=== PATIENT | male | born 1930 | race African-American/Black ===

== ENCOUNTER 2016-09-06 12:59 | Outpatient (CLI) | payer MEDICARE, MEDICAID ==
[2016-09-06 13:29] LABS: INR-International Normal Ratio 2.2; Prothrombin Time 24.7 SEC (12.0-14.7)
== END 2016-09-06 13:00 | disposition home or self-care (01) ==
LOC: MADLAB 12:59
PROVIDERS: ATTEND Family Medicine
DX: Z51.81 Encounter for therapeutic drug level monitoring (principal); Z79.01 Long term (current) use of anticoagulants
CPT/HCPCS: 36415; 85610

== ENCOUNTER 2016-09-10 07:51 | Emergency (ER) | payer MEDICARE, MEDICAID ==
[~2016-09-10 07:51] MED LIST: Sodium Chloride 0.9% 100 ML BAG ONE; Succinylcholine Chloride 200 MG/10 ML VIAL ONE
[2016-09-10 08:26] LABS: Anion Gap 16 mmol/L (10-20); BUN (Urea Nitrogen) 15 mg/dL (8.4-25.7); Calc. Creatinine Clearance 0 mL/min (70-130); Calcium 8.6 mg/dL (7.8-10.44); Carbon Dioxide 23 mmol/L (23-31); Chloride 106 mmol/L (98-107); Estimated GFR-MDRD 78; Glucose 183 mg/dL (83-110); Potassium 3.4 mmol/L (3.5-5.1); Sodium 142 mmol/L (136-145)
[2016-09-10] MEDS ORDERED: cefTRIAXone\\ROCEPHIN 1 GM VIAL ONE (08:27)
[2016-09-10] MEDS ORDERED: Famotidine In NaCl 20 mg/50 ml Premix Bag ONE (08:27)
[2016-09-10] MEDS ORDERED: Famotidine 20 MG TAB ONE (08:27)
[2016-09-10] MEDS ORDERED: Ondansetron HCl/PF 4 MG/2 ML Vial ONE (08:27)
[2016-09-10 08:30] LABS: CKMB 1.1 ng/mL (0-6.6); Troponin I Less than 0.010 ng/mL (< 0.028)
[2016-09-10 08:34] LABS: Bilirubin Negative (Negative); Blood, Urine Moderate (Negative); Clarity Clear (Clear); Glucose, Urine (Dipstick) Negative (Negative); Leukocyte Negative (Negative); Nitrite Negative (Negative); Protein, Urine (Dipstick) Trace mg/dL (Neg-Trace); Specific Gravity, Urine 1.015 (1.005-1.030); Urobilinogen 0.2 mg/dL (0.2-1.0); pH, Urine 5.5 (5.0-9.0)
[2016-09-10 08:35] LABS: Bacteria/HPF Rare-Few HPF (None Seen); Squamous Epithelial 0-3 HPF (0-3); WBC/HPF 0-3 HPF (0-3)
[2016-09-10 08:44] LABS: Hemoglobin 9.6 g/dL (14.0-18.0); MDiff Complete? YES; Manual Diff?? YES; Mean Corpuscular HGB CONC 32.5 g/dL (32.0-36.0); Mean Corpuscular Hemoglobin 27.6 pg (27.0-31.0); Mean Corpuscular Volume 84.8 fL (80.0-94.0); Mean Platelet Volume 9.2 fL (7.4-10.4); Platelet Count 63 thou/uL (130-400); RBC Distribution Width 13.5 % (11.5-14.5); Red Blood Cell (RBC) Count 3.49 mill/uL (4.70-6.10); White Blood Cell (WBC) Count 8.7 thou/uL (4.8-10.8)
[2016-09-10 08:45] LABS: Anisocytosis SLIGHT = 6-15 cells (100X) (0-5/hpf); Band 3 % (5-11); Lymphocytes 60 % (21-51); Monocytes 2 % (0-10); Neutrophil 34 % (42-75); PLT Morphology Comment Appears Decreased
[2016-09-10 08:46] LABS: Amphetamine Not Detected (NotDetected); Barbiturates Screen Not Detected (NotDetected); Benzodiazepine Screen Not Detected (NotDetected); Cocaine Metabolite Screen Not Detected (NotDetected); Medtox Control Line Valid? VALID (VALID); Methadone Not Detected (NotDetected); Methamphetamine Not Detected (NotDetected); Opiate Screen Not Detected (NotDetected); Oxycodone Screen Not Detected (NotDetected); Phencyclidine (PCP) Not Detected (NotDetected); THC/Cannabinoid Screen Not Detected (NotDetected); Tricyclic Screen Not Detected (NotDetected)
--- NOTE | 2016-09-10 08:46 | RAD ---
CHEST 1 VIEW: Date 09/10/16 HISTORY: Altered mental status. COMPARISON: 07/19/16. FINDINGS: The cardiac silhouette is magnified by projection. Pulmonary vasculature is upper limits of normal. Right infrahilar infiltrate has improved since the prior study. Mediastinum is midline. Cardiac alf tor leads overlie the chest. IMPRESSION: Improved aeration of the right lung base. Other chronic-type findings appear stable. POS: [facility]
[2016-09-10] MEDS ORDERED: Fentanyl 100 MCG/2 ML VIAL ONE (08:59)
[2016-09-10] MEDS ORDERED: Midazolam HCl 10 mg/2 ml Vial ONE (08:59)
--- NOTE | 2016-09-10 09:24 | CT ---
CT HEAD NONCONTRAST: Date: 09/10/16 HISTORY: Altered mental status. COMPARISON: 11/25/13. FINDINGS: Centered within the left frontal lobe is a very large heterogeneous mixed density fluid collection c ontaining hyperdense components. The mass measures up to 8.2 x 6.5 cm greatest diameter and is surro unded by a small amount of vasogenic edema. There is extensive effacement of the adjacent cerebrum a nd ventricular system. There is up to 1.4 cm rightward shift of the septum pellucidum. A small amoun t of hyperdense fluid layers within the dependent portion of the right lateral ventricle. A small fo cus of increased density just to the right of midline at the cerebellar vermis may represent subarac hnoid hemorrhage. IMPRESSION: Very large intra-axial hematoma centered within the left frontal lobe with intraventricular extensio n of hemorrhage and extensive mass effect, including rightward shift of the septum pellucidum. Prima ry considerations would include a hemorrhagic intra-axial mass, ruptured aneurysm, or hemorrhagic co nversion of a CVA. Findings were called to Dr. Zabala in the [facility] a 0824 hours. CODE CR. POS: [facility]
[2016-09-10 09:45] LABS: INR-International Normal Ratio 2.2; PTT 33.7 SEC (22.9-36.1); Prothrombin Time 24.6 SEC (12.0-14.7)
--- NOTE | 2016-09-10 10:03 | RAD ---
CHEST 1 VIEW: HISTORY: Tube placement. Unresponsive. COMPARISON: Chest 1 view 09/10/16. FINDINGS: The patient is intubated with the endotracheal tube tip positioned just below the level of the clavi cles. There are mild atelectatic changes in the lung roldan. No pneumothorax or large effusion. Car diac silhouette and mediastinal contours are within normal limits. IMPRESSION: 1. Endotracheal tube tip in good position below the level of the clavicles. 2. Suggestion of a new enteric tube, although poorly visualized on this examination. The tip is no t well seen. Consider an abdomen radiograph. POS: OFF
--- NOTE | 2016-09-10 10:07 | ERRECORD ---
[facility] EMERGENCY RECORD HPI MENTAL STATUS CHANGES CHIEF COMPLAINT: Patient presents for evaluation of lethargy, Patient presents for evaluation of unresponsiveness. (08:05 RWAG) HISTORIAN: History provided by patient's family, Additional history obtained from EMS, family called EMS "pt difficult to arouse from sleep this am". (08:05 RWAG) LOCATION: Symptoms are generalized. (08:05 RWAG) QUALITY: Patient is, responsive to painful stimuli. (08:05 RWAG) SEVERITY: Maximum severity of symptoms moderate, Currently symptoms are moderate. (08:05 RWAG) TIME COURSE: Patient unable to describe onset of symptoms. (08:05 RWAG) ASSOCIATED WITH: No associated hyperglycemia, No associated hypoglycemia. (08:05 RWAG) EXACERBATED BY: Patient's condition exacerbated by nothing. (08:05 RWAG) RELIEVED BY: Nothing tried for relief. (08:05 RWAG) CRITICAL CARE: Time spent providing critical care to the patient was 75-104 minutes, 90 minutes, RSI performed. see procedure note. (09:12 RWAG) ROS (08:06 RWAG) CONSTITUTIONAL: Historian reports lethargy. EYES: Negative eye review of systems. ENT: Negative ears, nose, throat review of systems. CARDIOVASCULAR: Negative cardiovascular review of systems. RESPIRATORY: Historian reports cough, reports sputum. described as thick. GI: Negative gastrointestinal review of systems. GENITOURINARY MALE: Negative genitourinary review of systems. MUSCULOSKELETAL: Negative musculoskeletal review of systems. SKIN: Negative skin review of systems. NEUROLOGIC: Historian reports lethargy, reports mental status changes. ENDOCRINE: Negative endocrine review of systems. HEMO/LYMPHATIC: Normal hematologic/lymphatic system review. ALLERGIC/IMMUNOLOGIC: Normal allergy/immunologic system review. NOTES: All systems reviewed, negative except as described above. PAST MEDICAL HISTORY (09:04 SFRE) MEDICAL HISTORY: Notes: VERIFIED PER DAUGHTER 16, Notes: In Addition - after speaking with daughters - PT HAS HX OF LEUKOCYTOSIS - SEEN IN [place] FOR THIS WITH ONCOLOGIST LAST SUMMER - NO CA FOUND PER DAUGHTERS, Flu vaccine up to date, Date of immunization: JUL 2013, Tetanus immunization up to date, Date of immunization: NOT SURE, Pneumococcal vaccine up to date, Date of immunization: 2012, Past medical history includes genitourinary history, ENLARGED PROSTATE, Past medical history includes history of hypertension, which has been treated. 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 MALE SURGICAL HISTORY: VERIFIED PER DAUGHTER 6-12-16, &a-1R&a+25V*p+0X*[id number]*c202B*c15G*c2P*p-0X&a-25V&a+1R Name: Chris Robles : 1930 M85 MedRec: [id number] AcctNum: [id number] Prepared: TueSep 10, 2016 10:05 by Interface Page 1 of 4 pMD [facility] EMERGENCY RECORD Patient has no surgical history. PSYCHIATRIC HISTORY: Notes: DENIES, No previous psychiatric history. SOCIAL HISTORY: Social History includes VERIFIED PER DAUGHTER 616, Patient is a former tobacco user, smoked cigarettes, Patient quit smoking more than 10 years ago, Tobacco history notes: QUIT AT AGE 78, Patient denies alcohol use, Patient denies drug use. KNOWN ALLERGIES No Known Drug Allergies CURRENT MEDICATIONS (09:22 AWAT) meTOPROLOL tartrate: TABLET : Strength - 25 mg : ORAL Patient Dose: 50 mg Oral 2 times a day. NIFEdipine: TABLET, EXTENDED RELEASE : Strength - 60 mg : ORAL Patient Dose: 60 mg Oral once a day. warfarin: TABLET : Strength - 7.5 mg : ORAL Patient Dose: 7 mg Oral once a day. terazosin: TABLET : Strength - 2 mg : ORAL Patient Dose: 1 cap(s) Oral once a day (in the evening). finasteride: TABLET : Strength - 5 mg : ORAL Patient Dose: 1 null null once a day. hydrochlorothiazide: TABLET : Strength - 25 mg : ORAL Patient Dose: once a day. [facility]07:56 [facility] VITAL SIGNS: BP: 166/101, Pulse: 88, Resp: 26, Temp: 95.5 (Rectal), Pain: 0, O2 sat: 88, Time: 09/10/2016 07:56. PHYSICAL EXAM (08:08 [facility]) CONSTITUTIONAL: Vital Signs Reviewed. HEAD: Head exam normal. EYES: Eye exam included findings of eyelids normal to inspection, Right pupil pinpoint,sluggish. Left pupil 3-4mm fixed,?possible old injury or cataract on left side. ENT: ENT exam normal. NECK: Neck exam normal. RESPIRATORY CHEST: Respiratory exam included findings of no respiratory distress, no egophony, Rales present, Chest exam included findings of chest movement symmetrical, Chest expansion equal, Percussion normal, thick mucus suctioned from oropharynx. CARDIOVASCULAR: Cardiovascular exam included findings of, rate bradycardic, rhythm regular. &a-1R&a+25V*p+0X*[id number]*c202B*c15G*c2P*p-0X&a-25V&a+1R Name: Chris Robles : 1930 M85 MedRec: [id number] AcctNum: [id number] Prepared: TueSep 10, 2016 10:05 by Interface Page 2 of 4 pMD [facility] EMERGENCY RECORD ABDOMEN MALE: Abdominal exam normal. GENITOURINARY MALE: External genitalia normal. BACK: Back exam normal. UPPER EXTREMITY: Upper extremity exam normal. LOWER EXTREMITY: Lower extremity exam normal. NEURO: Neuro exam findings include patient oriented to, [place] coma scale, Eye opening: (2) - To pain, Verbal: (2) - Incomprehensible sounds, Motor: (4) - Withdraws to Pain, GCS Total: 8. LYMPHATIC: Lymphatic exam normal. EKG INTERPRETATION (08:03 RW) 12 LEAD EKG INTERPRETATION: 12 lead EKG interpreted by Emergency Department Physician at time of study, 12 lead EKG shows, sinus bradycardia, Rate (beats per minute): 47, with no ectopics, No previous EKG available for comparison, Conduction normal, ST segments normal, T waves normal, [place] normal, Clinical impression:, non-specific EKG. MEDICATION ADMINISTRATION SUMMARY Drug Name: rocuronium, Dose Ordered: 10 mg, Route: IV Push, Status: Canceled, Time: 09:23 09/10/2016, Drug Name: *DuoNeb, Dose Ordered: 3 mL, Route: Nebulize, Status: Canceled, Time: 09:06 09/10/2016, Drug Name: *Versed injection, Dose Ordered: 10 mg, Route: IV Piggy Back, Status: Given, Time: 09:48 09/10/2016, Drug Name: Amidate, Dose Ordered: 20 mg, Route: IV Push, Status: Given, Time: 09:22 09/10/2016, Drug Name: famotidine (PF), Dose Ordered: 20 mg, Route: IV Push, Status: Given, Time: 09:08 09/10/2016, Drug Name: ondansetron HCl intravenous, Dose Ordered: 8 mg, Route: IV Push, Status: Given, Time: 09:07 09/10/2016, Drug Name: cefTRIAXone injection, Dose Ordered: 1 g, Route: IV Piggy Back, Status: Given, Time: 09:06 09/10/2016, Drug Name: fentaNYL (PF) injection, Dose Ordered: 50 mcg, Route: IV Push, Status: Given, Time: 09:04 09/10/2016, Drug Name: succinylcholine chloride intravenous, Dose Ordered: 200 mg, Route: IV Push, Status: Given, Time: 08:51 09/10/2016, *Additional information available in notes, Detailed record available in Medication Service section. DOCTOR NOTES (:07 ) TEXT: PROCEDURE NOTE:RSI Pt pre-oxygenated with 100% O2, Sat 100%. Induction medications given. Orotracheal intubation achieved on first attempt with no complications. 7.5 ETT placed 21cm at lip. ETT secured with tube tamer. ETCO2 yellow. Breath sounds heard equally, and bilaterally. Sat remained 100% throughout. CXR pending. &a-1R&a+25V*p+0X*x6317R*c202B*c15G*c2P*p-0X&a-25V&a+1R Name: Chris Robles : 1930 M85 MedRec: [id number] AcctNum: [id number] Prepared: TueSep 10, 2016 10:05 by Interface Page 3 of 4 pMD [facility] EMERGENCY RECORD PROBLEM LIST No recorded problems DIAGNOSIS (09:15 RW) FINAL: PRIMARY: Intracerebral hemorrhage (unspecified), ADDITIONAL: OTHER PRIMARY THROMBOCYTOPENIA. PRESCRIPTION No recorded prescriptions DISPOSITION PATIENT: Disposition Type: Transfer, Disposition: Transfer to [facility], Disposition Transport: Ambulance, Condition: Critical. (08:59 RWAG) Patient left the department. (10:00 SFRE) Edward: AWAT=NASRIN Ye, Louis RWAG=MD Vj, Zheng SFRE=NASRIN Diaz, Sindi &a-1R&a+25V*p+0X*[id number]*c202B*c15G*c2P*p-0X&a-25V&a+1R Name: Chris Robles : 1930 M85 MedRec: [id number] AcctNum: [id number] Prepared: TueSep 10, 2016 10:05 by Interface Page 4 of 4 pMD [facility]TDD
--- NOTE | 2016-09-10 10:09 | PICIS ---
[facility] EMERGENCY RECORD COMMUNICATIONS (08:52 AWAT) COMMUNICATIONS: Notes: TRANSFER PROCESS INITIATED NOW TO [facility]. DR ZABALA AT BEDSIDE INTUBATING. TRIAGE (07:59 MCRS) TRIAGE NOTES: TO ER BY EMS DUE TO UNRESPONSIVENESS... PT LIVES AT HOME W FAMILY, DOES HAVE SLIGHT WITHDRAWEL TO PAIN-NEEDLE STICKS. BRADYCARDIC IN 40'S-50'S. NO KNOWN INJURY. LAST SEEN NORMAL LAST NIGHT WHEN HE WENT TO BED.. (07:59 MCRS) PATIENT: NAME: Chris Robles, AGE: 85, GENDER: male, : Sat 1930, TIME OF GREET: TueSep 10, 2016 07:52, PREFERRED LANGUAGE: Georgian, ETHNICITY: Not or , FALL RISK: YES, ECODE BILLING MAP: [facility] ER, SSN: [id number], Zip Code: [address], KG WEIGHT: 79.38 (est.), PHONE: , , , PERSON ID: [id number]. (07:59 MCRS) COMPLAINT: EMS. (07:59 MCRS) ADMISSION: URGENCY: 3 Urgent, ADMISSION SOURCE: Home, TRANSPORT: AMBULANCE - [facility] EMS, BED: ED -02. (07:59 MCRS) ASSESSMENT: Assessment: PT UNRESPONSIVE, Symptoms began UNKNOWN, Additional Triage notes: LAST SEEN NORMAL AT 2330 09/09/2016. (09:40 SFRE) PAIN: No complaint of pain. (09:41 SFRE) SIRS SCORING: Heart Rate 55-109 (0), Temp range 93.1-96.7 (1), respiratory rate 25-34 (1), Mental status altered: yes (1), Total SIRS Score 3, Yes, Infection or Suspected Infection. (09:41 SFRE) SIRS NOTIFICATION: Yes, Infection or Suspected Infection. (09:42 SFRE) TRIAGE SCREENING: Patient denies suicidal ideation, Patient denies presence of domestic violence. (09:42 SFRE) PROVIDERS: TRIAGE NURSE: Andrew Coats RN. (07:59 MCRS) PREVIOUS VISIT ALLERGIES: No Known Drug Allergies. (07:59 MCRS) No Known Drug Allergies. (09:04 SFRE) KNOWN ALLERGIES No Known Drug Allergies CURRENT MEDICATIONS (09:22 AWAT) meTOPROLOL tartrate: TABLET : Strength - 25 mg : ORAL Patient Dose: 50 mg Oral 2 times a day. NIFEdipine: TABLET, EXTENDED RELEASE : Strength - 60 mg : ORAL Patient Dose: 60 mg Oral once a day. warfarin: TABLET : Strength - 7.5 mg : ORAL Patient Dose: 7 mg Oral once a day. terazosin: TABLET : Strength - 2 mg : ORAL &a-1R&a+25V*p+0X*r3815F*c202B*c15G*c2P*p-0X&a-25V&a+1R Name: Chris Robles : 1930 M85 MedRec: [id number] AcctNum: [id number] Prepared: TueSep 10, 2016 10:07 by Interface Page 1 of 17 pMD [facility] EMERGENCY RECORD Patient Dose: 1 cap(s) Oral once a day (in the evening). finasteride: TABLET : Strength - 5 mg : ORAL Patient Dose: 1 null null once a day. hydrochlorothiazide: TABLET : Strength - 25 mg : ORAL Patient Dose: once a day. VITAL SIGNS (07:56 SFRE) VITAL SIGNS: BP: 166/101, Pulse: 88, Resp: 26, Temp: 95.5 (Rectal), Pain: 0, O2 sat: 88, Time: 09/10/2016 07:56. NURSING ASSESSMENT: DYSPHAGIA SCREENING (09:32 SFRE) SWALLOWING EVALUATION: Swallowing evaluation approved by Dr. ZABALA, Notes: ORDERS FOR NPO. NURSING ASSESSMENT: NEURO GCS: (4) Withdraws to pain:, (1) None., (1) No eye opening:, Result: 6. (08:19 SFRE) (4) Withdraws to pain:, (1) None., (1) No eye opening:, Result: 6. (09:23 SFRE) NIHSS: CVA assessment findings: Level of consciousness: responds only with reflex motor effects, totally unresponsive (3), Total score 3. (08:19 SFRE) CVA assessment findings: Level of consciousness: responds only with reflex motor effects, totally unresponsive (3), Total score 3. (09:23 SFRE) CONSTITUTIONAL: Patient arrives, via stretcher, via [facility], History obtained from, [facility], Patient appears, unconscious, Patient, unresponsive, Patient, unresponsive, Patient is, UNRESPONSIVE, Skin warm, Skin dry, Skin normal in color, Mucous membranes pink, Mucous membranes, tacky, Patient, with poor personal hygiene, Patient complains of UNRESPONSIVE, FAMILY FOUND THIS AM, UNKNOWN HOW LONG HE HAS BEEN UNRESPONSIVE. (08:19 SFRE) Patient arrives, via stretcher, via [facility], Patient, unresponsive. (09:23 SFRE) NEURO: Pupils not equally round and reactive to light, fixed, pinpoint, fixed, dilated, GCS:, Eye opening: (1) - Absent, Verbal: (1) - Absent, Motor: (4) - Withdraws to Pain, GCS Total: 6, no associated fever, Notes: FAMILY FOUND PT LIKE THIS THIS MORNING WHEN THEY WENT TO WAKE HIM UP. LAST TIME SEEN NORMAL WAS AROUND 23:30 09/09/2016. (08:19 SFRE) SAFETY: Side rails up, Cart/Stretcher in lowest position, Call light within reach, Hospital ID band on. (08:19 SFRE) ADVANCED DIRECTIVES (09:38 SFRE) &a-1R&a+25V*p+0X*k9046O*c202B*c15G*c2P*p-0X&a-25V&a+1R Name: Chris Robles : 1930 M85 MedRec: [id number] AcctNum: [id number] Prepared: TueSep 10, 2016 10:07 by Interface Page 2 of 17 pMD [facility] EMERGENCY RECORD ADVANCED DIRECTIVE: No advanced Directives present for patient. Perform all reasonable measures, SISTER STATES SHE WANTS HIM TO BE RESUCITATED IF NEEDED. NURSING PROCEDURE: SENIOR TEST ENGINEER (08:17 SFRE) SENIOR TEST ENGINEER: Cardiac monitoring indicated for UNRESPONSVIE, Patient placed on campus monitor, Patient placed on non-invasive blood pressure monitor, Patient placed on continuous pulse oximetry, Adult/pediatric oxisensor applied. NURSING PROCEDURE: GASTRIC TUBE (09:12 AWAT) PATIENT IDENTIFIER: Patient's identity verified by hospital ID horacio, Patient's identity verified by family member. GASTRIC TUBE: Gastric tube indicated for airway maintenance, 16fr gastric tube inserted, into the left nare, in one attempt, Placement verified by auscultation, Placement verified by stomach contents in tube, Placement verified by x-ray, Gastric tube clamped. SAFETY: Side rails up, Cart/Stretcher in lowest position, Call light within reach, Hospital ID band on, Physician notified of above findings. NURSING PROCEDURE: INTUBATION (08:52 AWAT) PATIENT IDENTIFIER: Patient's identity verified by hospital ID horacio, Patient's identity verified by family member. INTUBATION: Intubation indicated for patient unable to maintain airway, Prior to intubation oxygen saturation 93%, by adult/pediatric oxisensor, on 4L, via nasal cannula applied, Prior to intubation breath sounds clear, to bilateral upper lobes, to the right middle lobe, to bilateral lower lobes, Patient intubated orally, Intubated by Dr. ZABALA, using a 7.5 mm endotracheal tube, in one attempts, Number at the lip (cm) 21, Yankauer suction at head of bed, Ventilated with Ambu bag post intubation, Endotracheal tube secured, with tube kaur, Breath sounds heard bilaterally, no gurgling over abdomen, Chest x-ray ordered to confirm placement, Chest x-ray completed and placement confirmed, Notes: CO2 DETECTOR WITH + COLOR CHANGE. FOLLOW-UP: Post intubation oxygen saturation 100%, After intubation, breath sounds positive for being clear, to bilateral upper lobes, to the right middle lobe, to bilateral lower lobes, After intubation, patient placed on ventilator with settings: FIO2 100, Tidal Volume: 600, Respiratory rate: 12, Mode: AUTOVENT. NOTES: Emotional support needed and given, Patient tolerated procedure well. SAFETY: Side rails up, Cart/Stretcher in lowest position, Call light within reach, Hospital ID band on, Physician notified of above findings. NURSING PROCEDURE: IV IV SITE 1: Notes: by ems dining room captain, 20 to left hand. (08:17 SFRE) &a-1R&a+25V*p+0X*g0941B*c202B*c15G*c2P*p-0X&a-25V&a+1R Name: Chris Robles : 1930 M85 MedRec: [id number] AcctNum: [id number] Prepared: TueSep 10, 2016 10:07 by Interface Page 3 of 17 pMD [facility] EMERGENCY RECORD IV SITE 2: IV therapy indicated for medication administration, IV established, to the right forearm, using an 18 gauge catheter, in one attempt, Saline lock established, Flushed with normal saline (mls): 5cc, Labs drawn at time of placement, labeled in the presence of the patient and sent to lab. (08:16 SFRE) FOLLOW-UP SITE 1: After procedure, no drainage at IV site, After procedure, no swelling at IV site, After procedure, no redness at IV site. (09:00 SFRE) FOLLOW-UP SITE 2: After procedure, no drainage at IV site, After procedure, no swelling at IV site, After procedure, no redness at IV site. (09:35 SFRE) NURSING PROCEDURE: NURSE NOTES NURSES NOTES: Notes: NG TUBE AT THIS TIME PER YANIQUE. (09:12 SFRE) Notes: TRIAGE DONE BY JHONNY ALEXANDRA-ACCIDENTAL ENTRY UNDER ANOTHER LOGIN. (07:59 AWAT) Warm blanket given to patient. (08:05 SFRE) NURSING PROCEDURE: OXYGEN THERAPY (09:33 SFRE) OXYGEN THERAPY: Oxygen therapy indicated for UNRESPONSIVE, Oxygen saturation 97%, by adult/pediatric oxisensor, multiple pulse oximetry reading, 4L oxygen given, via nasal cannula applied, Applied by EMS ORTHODONTIC ASSISTANT, via nasal cannula. FOLLOW-UP: After procedure, oxygen saturation 100%, After procedure, breath sounds diminished, Notes: INTUBATED AND ON VENTILATOR. SAFETY: Side rails up, Cart/Stretcher in lowest position, Family at bedside, Call light within reach, Hospital ID band on. NURSING PROCEDURE: TRANSFER (09:24 SFRE) TRANSFER: Reason for transfer need for specialized care, Accepting institution: [facility], Referring physician: ELINOR, Transported by urgent ambulance, accompanied by emergency medical services personnel, Report called to receiving facility, NASRIN LONG, Provided opportunity to answer questions, Bed assigned ON ARRIVAL TO ED, Summary of Care printed, Copy of patient record prepared for receiving facility, Patient consent for transfer signed, Patient given appropriate sedation for safe transport, Family member contacted, BS. EQUIPMENT WITH PATIENT: Equipment with patient at time of transfer campus monitor, Equipment with patient at time of transfer carbon dioxide monitor, Saline lock intact and patent at time of transfer, Equipment with patient at time of transfer VENTILATOR 600/TV, 12 RESP, Notes: VERSED DRIP. NURSING PROCEDURE: TRANSPORT TO TESTS (08:14 SFRE) TRANSPORT TO TESTS: Transport indicated to facilitate diagnosis, Patient transported to CT scan, via cart, Accompanied by x-ray robotic technician, Accompanied by nurse, Transported with advanced life &a-1R&a+25V*p+0X*g3002H*c202B*c15G*c2P*p-0X&a-25V&a+1R Name: Chris Robles : 1930 M85 MedRec: [id number] AcctNum: [id number] Prepared: TueSep 10, 2016 10:07 by Interface Page 4 of 17 pMD [facility] EMERGENCY RECORD support care, Notes: transported with campus monitor. NURSING PROCEDURE: URINE COLLECTION (08:00 SFRE) URINE COLLECTION MALE: Simple huerta inserted, using a 16 fr pre-connected catheter, in one attempt, urine rolando in color, and cloudy, Huerta has been anchored to leg and labeled with date and time, Specimen labeled in the presence of the patient and sent to lab, Specimen obtained for culture labeled in the presence of the patient and sent to lab, Notes: HUERTA BY NASRIN VÁZQUEZ. NURSING PROCEDURE: VENTILATOR (09:30 SFRE) FOLLOW UP: After procedure, oxygen saturation 99%, ETT secured with tube kaur, After procedure, breath sounds diminished. ORDER DETAILS Order Name: Accucheck, Status: Done, Time: 08:13 09/10/2016, User: MARY, - Ordered for: MD Zabala Richard, - Entered by: MD Zabala Richard - TueSep 10, 2016 08:01, - Quantity: 1, Order Name: Ammonia, Status: Active, Time: 08:01 09/10/2016, User: KYLE, - Ordered for: MD Zabala Richard, - Entered by: MD Zabala Richard - TueSep 10, 2016 08:01, - Quantity: 1, Order Name: Basic Metabolic Panel, Status: Active, Time: 08:01 09/10/2016, User: KYLE, - Ordered for: MD Zabala Richard, - Entered by: MD Zabala Richard - TueSep 10, 2016 08:01, - Quantity: 1, Order Name: Cardiac Profile w/CKMB & Troponin - I, Status: Active, Time: 08:01 09/10/2016, User: KYLE, - Ordered for: MD Zabala Richard, - Entered by: MD Zabala Richard - TueSep 10, 2016 08:01, - Quantity: 1, Order Name: CATH STRAIGHT ED, Status: Done, Time: 08:13 09/10/2016, User: MARY, - Ordered for: MD Zabala Richard, - Entered by: MD Zabala Richard - TueSep 10, 2016 08:01, - Quantity: 1, Order Name: CBC with Differential, Status: Active, Time: 08:01 09/10/2016, User: KYLE, - Ordered for: MD Zabala Richard, - Entered by: MD Zabala Richard - TueSep 10, 2016 08:01, - Quantity: 1, Order Name: CT Brain WO Con, Status: Active, Time: 08:01 09/10/2016, User: KYLE, &a-1R&a+25V*p+0X*d8350U*c202B*c15G*c2P*p-0X&a-25V&a+1R Name: Chris Robles : 1930 M85 MedRec: [id number] AcctNum: [id number] Prepared: TueSep 10, 2016 10:07 by Interface Page 5 of 17 pMD [facility] EMERGENCY RECORD - Ordered for: MD Zabala Richard, - Entered by: MD Zabala Richard - TueSep 10, 2016 08:01, - Quantity: 1, Order Name: Culture, Blood, Status: Active, Time: 08:12 09/10/2016, User: KYLE, - Ordered for: MD Zabala Richard, - Entered by: MD Zabala Richard - TueSep 10, 2016 08:12, - Quantity: 1, Order Name: Culture, Urine, Status: Active, Time: 08:12 09/10/2016, User: KYLE, - Ordered for: MD Zabala Richard, - Entered by: MD Zabala Richard - TueSep 10, 2016 08:12, - Quantity: 1, Order Name: Drug Screen, Urine, Status: Active, Time: 08:01 09/10/2016, User: KYLE, - Ordered for: MD Zabala Richard, - Entered by: MD Zabala Richard - TueSep 10, 2016 08:01, - Quantity: 1, Order Name: EKG 12 Lead in Emergency Room, Status: Active, Time: 08:01 09/10/2016, User: KYLE, - Ordered for: MD Zabala Richard, - Entered by: MD Zabala Richard - TueSep 10, 2016 08:01, - Quantity: 1, Order Name: ERRT Pulse Oximeter ER, Status: Active, Time: 08:01 09/10/2016, User: KYLE, - Ordered for: MD Zabala Richard, - Entered by: MD Zabala Richard - TueSep 10, 2016 08:01, - Quantity: 1, Order Name: Lactic Acid with repeat, Status: Active, Time: 08:12 09/10/2016, User: KYLE, - Ordered for: MD Zabala Richard, - Entered by: MD Zabala Richard - TueSep 10, 2016 08:12, - Quantity: 1, Order Name: NPO IN ED, Status: Done, Time: 08:13 09/10/2016, User: MARY, - Ordered for: MD Zabala Richard, - Entered by: MD Zabala Richard - TueSep 10, 2016 08:01, - Quantity: 1, Order Name: Protime with INR, Status: Active, Time: 09:11 09/10/2016, User: KYLE, - Ordered for: MD Zabala Richard, - Entered by: MD Zabala Richard - TueSep 10, 2016 09:11, - Quantity: 1, Order Name: PTT, Status: Active, Time: 09:11 09/10/2016, User: KYLE, - Ordered for: MD Zabala Richard, - Entered by: MD Zabala Richard - TueSep 10, 2016 09:11, - Quantity: 1, Order Name: SALINE LOCK, Status: Done, Time: 08:13 09/10/2016, User: MARY, - Ordered for: MD Zabala Richard, &a-1R&a+25V*p+0X*a9694Y*c202B*c15G*c2P*p-0X&a-25V&a+1R Name: hCris Robles : 1930 M85 MedRec: [id number] AcctNum: [id number] Prepared: TueSep 10, 2016 10:07 by Interface Page 6 of 17 pMD [facility] EMERGENCY RECORD - Entered by: MD Zabala Richard - TueSep 10, 2016 08:01, - Quantity: 1, Order Name: Urinalysis w/ Rflx Microscopic, Status: Active, Time: 08:01 09/10/2016, User: KYLE, - Ordered for: MD Zabala Richard, - Entered by: MD Zabala Richard - TueSep 10, 2016 08:01, - Quantity: 1, Order Name: XR Chest 1 View Portable, Status: Active, Time: 08:01 09/10/2016, User: KYLE, - Ordered for: MD Zabala Richard, - Entered by: MD Zabala Richard - TueSep 10, 2016 08:01, - Quantity: 1. MEDICATION ADMINISTRATION SUMMARY Drug Name: rocuronium, Dose Ordered: 10 mg, Route: IV Push, Status: Canceled, Time: 09:23 09/10/2016, Drug Name: *DuoNeb, Dose Ordered: 3 mL, Route: Nebulize, Status: Canceled, Time: 09:06 09/10/2016, Drug Name: *Versed injection, Dose Ordered: 10 mg, Route: IV Piggy Back, Status: Given, Time: 09:48 09/10/2016, Drug Name: Amidate, Dose Ordered: 20 mg, Route: IV Push, Status: Given, Time: 09:22 09/10/2016, Drug Name: famotidine (PF), Dose Ordered: 20 mg, Route: IV Push, Status: Given, Time: 09:08 09/10/2016, Drug Name: ondansetron HCl intravenous, Dose Ordered: 8 mg, Route: IV Push, Status: Given, Time: 09:07 09/10/2016, Drug Name: cefTRIAXone injection, Dose Ordered: 1 g, Route: IV Piggy Back, Status: Given, Time: 09:06 09/10/2016, Drug Name: fentaNYL (PF) injection, Dose Ordered: 50 mcg, Route: IV Push, Status: Given, Time: 09:04 09/10/2016, Drug Name: succinylcholine chloride intravenous, Dose Ordered: 200 mg, Route: IV Push, Status: Given, Time: 08:51 09/10/2016, *Additional information available in notes, Detailed record available in Medication Service section. MEDICATION SERVICE Amidate: Order: Amidate (etomidate) - Dose: 20 mg : IV Push Schedule: Now Ordered by: Zheng Zabala MD Entered by: Zheng Zabala MD TueSep 10, 2016 09:18 Documented as given by: Sindi Diaz RN TueSep 10, 2016 09:22 Patient, Medication, Dose, Route and Time verified prior to administration. Amount given: 20MG, IV SITE #1 IVP, subsequent different medication, Slowly, Catheter placement confirmed via flush prior to administration, IV site without signs or symptoms of infiltration during medication administration, No swelling during administration, No drainage during administration, IV flushed after administration, &a-1R&a+25V*p+0X*f8692E*c202B*c15G*c2P*p-0X&a-25V&a+1R Name: Chris Robles : 1930 M85 MedRec: [id number] AcctNum: [id number] Prepared: TueSep 10, 2016 10:07 by Interface Page 7 of 17 pMD [facility] EMERGENCY RECORD Correct patient, time, route, dose and medication confirmed prior to administration, Patient advised of actions and side-effects prior to administration, Allergies confirmed and medications reviewed prior to administration, Patient in position of comfort, Side rails up, Cart in lowest position, Family at bedside. cefTRIAXone injection: Order: cefTRIAXone injection (ceftriaxone sodium) - Dose: 1 g : IV Piggy Back Schedule: Now Ordered by: Zheng Zabala MD Entered by: Zheng Zabala MD TueSep 10, 2016 08:13 , Acknowledged by: Sindi Diaz RN TueSep 10, 2016 08:14 Documented as given by: Sindi Diaz RN TueSep 10, 2016 09:06 Patient, Medication, Dose, Route and Time verified prior to administration. Amount given: 1G, IV SITE #1 IVPB or drip, initial infusion, Catheter placement confirmed via flush prior to administration, IV site without signs or symptoms of infiltration during medication administration, No swelling during administration, No drainage during administration, IV flushed after administration, Correct patient, time, route, dose and medication confirmed prior to administration, Patient advised of actions and side-effects prior to administration, Allergies confirmed and medications reviewed prior to administration, Patient in position of comfort, Side rails up, Cart in lowest position, Family at bedside. : Follow Up : Response assessment performed, No signs or symptoms of allergic reaction noted, Site inspection shows, No swelling at administration site, No drainage at administration site, No bleeding at site, No bruising noted at site, _IV SITE #1:_, Medication infusion discontinued, on TueSep 10, 2016 09:40, 35 minutes, ., Total amount infused: 1G, IV Line flushed after administration. (09:22 SFRE) famotidine (PF): Order: famotidine (PF) (famotidine/preservative free) - Dose: 20 mg : IV Push Schedule: Now Ordered by: Zheng Zabala MD Entered by: Zheng Zabala MD TueSep 10, 2016 08:03 , Acknowledged by: Sindi Diaz RN TueSep 10, 2016 08:14. : Follow Up : Order: famotidine (PF) (famotidine/preservative free) - Dose: 20 mg : IV Push Schedule: Now Ordered by: Zheng Zabala MD Entered by: Zheng Zabala MD TueSep 10, 2016 08:03 , Acknowledged by: Sindi Diaz RN TueSep 10, 2016 08:15. (08:03 [facility]) : Follow Up : Response assessment performed, No signs or symptoms of allergic reaction noted, _IV SITE #2:_, Medication infusion discontinued, on TueSep 10, 2016 09:24, 20 minutes, ., Total amount infused: 20MG, IV Line flushed after administration. (09:08 SFRE) famotidine (PF): Order: famotidine (PF) (famotidine/preservative &a-1R&a+25V*p+0X*y3107N*c202B*c15G*c2P*p-0X&a-25V&a+1R Name: Chris Robles : 1930 M85 MedRec: [id number] AcctNum: [id number] Prepared: TueSep 10, 2016 10:07 by Interface Page 8 of 17 pMD [facility] EMERGENCY RECORD free) - Dose: 20 mg : IV Push Schedule: Now Ordered by: Zheng Zabala MD Entered by: Zheng Zabala MD TueSep 10, 2016 08:03 , Acknowledged by: Sindi Diaz RN TueSep 10, 2016 08:15 Documented as given by: Sindi Diaz RN TueSep 10, 2016 09:08 Patient, Medication, Dose, Route and Time verified prior to administration. Amount given: 20MG, IV SITE #1 IVPB or drip, subsequent infusion, Catheter placement confirmed via flush prior to administration, IV site without signs or symptoms of infiltration during medication administration, No swelling during administration, No drainage during administration, IV flushed after administration, Correct patient, time, route, dose and medication confirmed prior to administration, Patient advised of actions and side-effects prior to administration, Allergies confirmed and medications reviewed prior to administration, Patient in position of comfort, Side rails up, Cart in lowest position, Family at bedside. fentaNYL (PF) injection: Order: fentaNYL (PF) injection (fentanyl citrate/preservative free) - Dose: 50 mcg : IV Push Schedule: Now Ordered by: Zheng Zabala MD Entered by: Zheng Zabala MD TueSep 10, 2016 09:02 Documented as given by: Sindi Diaz RN TueSep 10, 2016 09:04 Patient, Medication, Dose, Route and Time verified prior to administration. Amount given: 50MCG, IV SITE #1 IVP, subsequent different medication, Rapidly, Line traced prior to administration, Catheter placement confirmed via flush prior to administration, IV site without signs or symptoms of infiltration during medication administration, No swelling during administration, No drainage during administration, IV flushed after administration, Correct patient, time, route, dose and medication confirmed prior to administration, Allergies confirmed and medications reviewed prior to administration, Patient in position of comfort, Side rails up, Cart in lowest position, Family at bedside. ondansetron HCl intravenous: Order: ondansetron HCl intravenous (ondansetron HCl) - Dose: 8 mg : IV Push Schedule: Now Ordered by: Zheng Zabala MD Entered by: Zheng Zabala MD TueSep 10, 2016 08:03 , Acknowledged by: Sindi Diaz RN TueSep 10, 2016 08:14 Documented as given by: Sindi Diaz RN TueSep 10, 2016 09:07 Patient, Medication, Dose, Route and Time verified prior to administration. Amount given: 8MG, IV SITE #1 IVP, subsequent different medication, Awake and alert- acceptable, Catheter placement confirmed via flush prior to administration, IV site without signs or symptoms of infiltration during medication administration, No swelling during &a-1R&a+25V*p+0X*l2427G*c202B*c15G*c2P*p-0X&a-25V&a+1R Name: Chris Robles : 1930 M85 MedRec: [id number] AcctNum: [id number] Prepared: TueSep 10, 2016 10:07 by Interface Page 9 of 17 pMD [facility] EMERGENCY RECORD administration, No drainage during administration, IV flushed after administration, Correct patient, time, route, dose and medication confirmed prior to administration, Patient advised of actions and side-effects prior to administration, Allergies confirmed and medications reviewed prior to administration, Patient in position of comfort, Side rails up, Cart in lowest position, Family at bedside. succinylcholine chloride intravenous: Order: succinylcholine chloride intravenous (succinylcholine chloride) - Dose: 200 mg : IV Push Schedule: Now Ordered by: Zheng Zabala MD Entered by: Zheng Zabala MD TueSep 10, 2016 09:18 Documented as given by: Sindi Diaz RN TueSep 10, 2016 08:51 Patient, Medication, Dose, Route and Time verified prior to administration. Amount given: 200MG, IV SITE #1 IVP, subsequent different medication, Catheter placement confirmed via flush prior to administration, IV site without signs or symptoms of infiltration during medication administration, No swelling during administration, No drainage during administration, IV flushed after administration, Correct patient, time, route, dose and medication confirmed prior to administration, Patient advised of actions and side-effects prior to administration, Allergies confirmed and medications reviewed prior to administration, Patient in position of comfort, Side rails up, Cart in lowest position. Versed injection: Order: Versed injection (midazolam HCl) - Dose: 10 mg : IV Piggy Back Schedule: Now Notes: VERSED DRIP TO TITRATE SEDATION Ordered by: Zheng Zabala MD Entered by: Sindi Diaz RN TueSep 10, 2016 09:48 Documented as given by: Sindi Diaz RN TueSep 10, 2016 09:48 Patient, Medication, Dose, Route and Time verified prior to administration. Administered by NASRIN PARR, 10MG VERSED IN 100ML OF NS FLUIDS. DRIP HUNG FOR EMS TRANSPORT BUT NOT STARTED. ORDER IS TO TITRATE NEEDED FOR SEDATION., Co-signed by: Louis Ye RN TueSep 10, 2016 09:51. (CANCELED) DuoNeb: Order: DuoNeb (ipratropium bromide/albuterol sulfate) - Dose: 3 mL : Nebulize Schedule: Now Notes: (0.5mg Ipratropium Mcrae/3mg Albuterol Sulfate = 3ml) Ordered by: Zheng Zabala MD Entered by: Zheng Zabala MD TueSep 10, 2016 08:12 , Acknowledged by: Sindi Diaz RN TueSep 10, 2016 08:14 Canceled by: Sindi Diaz RN. TueSep 10, 2016 09:06 Cancel reason: Change in medication plan:PATIENT BEING INTUBATED. (CANCELED) rocuronium: Order: rocuronium (rocuronium bromide) - Dose: 10 mg : IV Push &a-1R&a+25V*p+0X*[id number]*c202B*c15G*c2P*p-0X&a-25V&a+1R Name: Chris Robles : 1930 M85 MedRec: [id number] AcctNum: [id number] Prepared: TueSep 10, 2016 10:07 by Interface Page 10 of 17 pMD [facility] EMERGENCY RECORD Schedule: Now Ordered by: Zheng Zabala MD Entered by: Zheng Zabala MD TueSep 10, 2016 09:06 Canceled by: Sindi Diaz RN. TueSep 10, 2016 09:23 Cancel reason: Change in medication plan. HPI MENTAL STATUS CHANGES CHIEF COMPLAINT: Patient presents for evaluation of lethargy, Patient presents for evaluation of unresponsiveness. (08:05 RWAG) HISTORIAN: History provided by patient's family, Additional history obtained from EMS, family called EMS "pt difficult to arouse from sleep this am". (08:05 RWAG) LOCATION: Symptoms are generalized. (08:05 RWAG) QUALITY: Patient is, responsive to painful stimuli. (08:05 RWAG) SEVERITY: Maximum severity of symptoms moderate, Currently symptoms are moderate. (08:05 RWAG) TIME COURSE: Patient unable to describe onset of symptoms. (08:05 RWAG) ASSOCIATED WITH: No associated hyperglycemia, No associated hypoglycemia. (08:05 RWAG) EXACERBATED BY: Patient's condition exacerbated by nothing. (08:05 RWAG) RELIEVED BY: Nothing tried for relief. (08:05 RWAG) CRITICAL CARE: Time spent providing critical care to the patient was 75-104 minutes, 90 minutes, RSI performed. see procedure note. (09:12 RWAG) ROS (08:06 RWAG) CONSTITUTIONAL: Historian reports lethargy. EYES: Negative eye review of systems. ENT: Negative ears, nose, throat review of systems. CARDIOVASCULAR: Negative cardiovascular review of systems. RESPIRATORY: Historian reports cough, reports sputum. described as thick. GI: Negative gastrointestinal review of systems. GENITOURINARY MALE: Negative genitourinary review of systems. MUSCULOSKELETAL: Negative musculoskeletal review of systems. SKIN: Negative skin review of systems. NEUROLOGIC: Historian reports lethargy, reports mental status changes. ENDOCRINE: Negative endocrine review of systems. HEMO/LYMPHATIC: Normal hematologic/lymphatic system review. ALLERGIC/IMMUNOLOGIC: Normal allergy/immunologic system review. NOTES: All systems reviewed, negative except as described above. PAST MEDICAL HISTORY (09:04 SFRE) MEDICAL HISTORY: Notes: VERIFIED PER DAUGHTER 02-01-16, Notes: In Addition - after speaking with daughters - PT HAS HX OF LEUKOCYTOSIS - SEEN IN [place] FOR THIS WITH ONCOLOGIST LAST SUMMER - NO CA FOUND PER DAUGHTERS, Flu vaccine up to date, Date of immunization: JUL 2013, Tetanus immunization up to date, Date of &a-1R&a+25V*p+0X*[id number]*c202B*c15G*c2P*p-0X&a-25V&a+1R Name: Chris Robles : 1930 M85 MedRec: [id number] AcctNum: [id number] Prepared: TueSep 10, 2016 10:07 by Interface Page 11 of 17 pMD [facility] EMERGENCY RECORD immunization: NOT SURE, Pneumococcal vaccine up to date, Date of immunization: 2012, Past medical history includes genitourinary history, ENLARGED PROSTATE, Past medical history includes history of hypertension, which has been treated. 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 MALE SURGICAL HISTORY: VERIFIED PER DAUGHTER 6-12-16, Patient has no surgical history. PSYCHIATRIC HISTORY: Notes: DENIES, No previous psychiatric history. SOCIAL HISTORY: Social History includes VERIFIED PER DAUGHTER 6-12-16, Patient is a former tobacco user, smoked cigarettes, Patient quit smoking more than 10 years ago, Tobacco history notes: QUIT AT AGE 78, Patient denies alcohol use, Patient denies drug use. PHYSICAL EXAM (08:08 [facility]) CONSTITUTIONAL: Vital Signs Reviewed. HEAD: Head exam normal. EYES: Eye exam included findings of eyelids normal to inspection, Right pupil pinpoint,sluggish. Left pupil 3-4mm fixed,?possible old injury or cataract on left side. ENT: ENT exam normal. NECK: Neck exam normal. RESPIRATORY CHEST: Respiratory exam included findings of no respiratory distress, no egophony, Rales present, Chest exam included findings of chest movement symmetrical, Chest expansion equal, Percussion normal, thick mucus suctioned from oropharynx. CARDIOVASCULAR: Cardiovascular exam included findings of, rate bradycardic, rhythm regular. ABDOMEN MALE: Abdominal exam normal. GENITOURINARY MALE: External genitalia normal. BACK: Back exam normal. UPPER EXTREMITY: Upper extremity exam normal. LOWER EXTREMITY: Lower extremity exam normal. NEURO: Neuro exam findings include patient oriented to, [place] coma scale, Eye opening: (2) - To pain, Verbal: (2) - Incomprehensible sounds, Motor: (4) - Withdraws to Pain, GCS Total: 8. LYMPHATIC: Lymphatic exam normal. EVENTS TRANSFER: Triage to Emergency Main ED -02. (TueSep 10, 2016 07:59 [facility]) [facility] EKG INTERPRETATION (08:03 [facility]) 12 LEAD EKG INTERPRETATION: 12 lead EKG interpreted by Emergency Department Physician at time of study, 12 lead EKG shows, sinus bradycardia, Rate (beats per minute): 47, with no ectopics, No previous EKG available for comparison, Conduction &a-1R&a+25V*p+0X*[id number]*c202B*c15G*c2P*p-0X&a-25V&a+1R Name: Chris Robles : 1930 M85 MedRec: [id number] AcctNum: [id number] Prepared: TueSep 10, 2016 10:07 by Interface Page 12 of 17 pMD [facility] EMERGENCY RECORD normal, ST segments normal, T waves normal, [place] normal, Clinical impression:, non-specific EKG. DOCTOR NOTES (09:07 RWAG) TEXT: PROCEDURE NOTE:RSI Pt pre-oxygenated with 100% O2, Sat 100%. Induction medications given. Orotracheal intubation achieved on first attempt with no complications. 7.5 ETT placed 21cm at lip. ETT secured with tube tamer. ETCO2 yellow. Breath sounds heard equally, and bilaterally. Sat remained 100% throughout. CXR pending. PROBLEM LIST No recorded problems DIAGNOSIS (09:15 RWAG) FINAL: PRIMARY: Intracerebral hemorrhage (unspecified), ADDITIONAL: OTHER PRIMARY THROMBOCYTOPENIA. DISPOSITION PATIENT: Disposition Type: Transfer, Disposition: Transfer to [facility], Disposition Transport: Ambulance, Condition: Critical. (08:59 RWAG) Patient left the department. (10:00 SFRE) PRESCRIPTION No recorded prescriptions IMAGING *EKG: Image captured from scanner. (08:30 JPAR) MOT: Image captured from scanner. (09:03 JPAR) CONSENTS: Image captured from scanner. (09:04 JPAR) TRANSPORT ORDERS: Image captured from scanner. (09:05 JPAR) VITAL SIGNS: Image captured from scanner. (09:38 SFRE) *SUPPLY CHARGE SHEET: Image captured from scanner. (10:00 SFRE) ADMIN (10:00 RWAG) DIGITAL SIGNATURE: MD Elinor, Zheng. RESULTS RADIOLOGY: XR Chest 1 View Portable Observe DT: TueSep 10, 2016 08:04, CXRP CHEST 1 VIEW: Date 09/10/16 HISTORY: Altered mental status. &a-1R&a+25V*p+0X*k5949K*c202B*c15G*c2P*p-0X&a-25V&a+1R Name: Chris Robles : 1930 M85 MedRec: [id number] AcctNum: [id number] Prepared: TueSep 10, 2016 10:07 by Interface Page 13 of 17 pMD [facility] EMERGENCY RECORD COMPARISON: 07/19/16. FINDINGS: The cardiac silhouette is magnified by projection. Pulmonary vasculature is upper limits of normal. Right infrahilar infiltrate has improved since the prior study. Mediastinum is midline. Cardiac alf tor leads overlie the chest. IMPRESSION: Improved aeration of the right lung base. Other chronic-type findings appear stable. POS: DYLLAN . (09:02 AWAT) CT Brain WO Con Observe DT: TueSep 10, 2016 08:03, BR CT HEAD NONCONTRAST: Date: 09/10/16 HISTORY: Altered mental status. COMPARISON: 11/25/13. FINDINGS: Centered within the left frontal lobe is a very large heterogeneous mixed density fluid collection c ontaining hyperdense components. The mass measures up to 8.2 x 6.5 cm greatest diameter and is surro unded by a small amount of vasogenic edema. There is extensive effacement of the adjacent cerebrum a nd ventricular system. There is up to 1.4 cm rightward shift of the septum pellucidum. A small amoun t of hyperdense fluid layers within the dependent portion of the right lateral ventricle. A small fo cus of increased density just to the right of midline at the cerebellar vermis may represent subarac hnoid hemorrhage. IMPRESSION: Very large intra-axial hematoma centered within the left frontal lobe with intraventricular extensio n of hemorrhage and extensive mass effect, including rightward shift of the septum pellucidum. Prima ry considerations would include a hemorrhagic intra-axial mass, &a-1R&a+25V*p+0X*m7307N*c202B*c15G*c2P*p-0X&a-25V&a+1R Name: Chris Robles : 1930 M85 MedRec: [id number] AcctNum: [id number] Prepared: TueSep 10, 2016 10:07 by Interface Page 14 of 17 pMD [facility] EMERGENCY RECORD ruptured aneurysm, or hemorrhagic co nversion of a CVA. Findings were called to Dr. Zabala in the [place] [facility] a 0824 hours. CODE CR. POS: DYLLAN . (09:44 RW) LABORATORY: Drug Screen, Urine Collection DT: TueSep 10, 2016 08:28, THC/Cannabinoid Screen Not Detected , Range (NotDetected), Phencyclidine (PCP) Not Detected , Range (NotDetected), Cocaine Metabolite Screen Not Detected , Range (NotDetected), Methamphetamine Not Detected , Range (NotDetected), Opiate Screen Not Detected , Range (NotDetected), Amphetamine Not Detected , Range (NotDetected), Benzodiazepine Screen Not Detected , Range (NotDetected), Tricyclic Screen Not Detected , Range (NotDetected), Methadone Not Detected , Range (NotDetected), Barbiturates Screen Not Detected , Range (NotDetected), Oxycodone Screen Not Detected , Range (NotDetected), Propoxyphene Screen Not Detected , Range (NotDetected), Drug Screen Cutoff , Range (), The Spinal Integration Profile-V Panel for Qualitative Drugs of Abuse assays are for, presumptive screening testing only. The drug class and detection limits, are as follows: Drug Class Detection Limit Amphetamine , 500 ng/mL* Barbiturates 200 ng/mL , Benzodiazepines 150 ng/mL* Cocaine 150 ng/mL*, Methamphetamine 500 ng/mL* Methadone 200, ng/mL* Opiates 100 ng/mL* Oxycodone , 100 ng/mL PCP 25 ng/mL Propoxyphene , 300 ng/mL Tricyclic Antidepressants 300 ng/mL Cannabinoids (THC) , 50 ng/mL Tests which yield a presumptive positive result must be , tested using a more specific alternate chemical method in order to obtain, a confirmed analytical result. Additional confirmation and identification, may be ordered on a routine basis, if desired. Presumptive positive urines, are held for two weeks. . (08:56 [facility]) &a-1R&a+25V*p+0X*f1797X*c202B*c15G*c2P*p-0X&a-25V&a+1R Name: Chris Robles : 1930 M85 MedRec: [id number] AcctNum: [id number] Prepared: TueSep 10, 2016 10:07 by Interface Page 15 of 17 pMD [facility] EMERGENCY RECORD CBC with Differential Collection DT: TueSep 10, 2016 08:11, White Blood Cell (WBC) Count 8.7 thou/uL, Range (4.8-10.8), *Red Blood Cell (RBC) Count 3.49 - L mill/uL, Range (4.70-6.10), *Hemoglobin 9.6 - L g/dL, Range (14.0-18.0), *Hematocrit 29.6 - L %, Range (42.0-52.0), Mean Corpuscular Volume 84.8 fL, Range (80.0-94.0), Mean Corpuscular Hemoglobin 27.6 pg, Range (27.0-31.0), Mean Corpuscular HGB CONC 32.5 g/dL, Range (32.0-36.0), RBC Distribution Width 13.5 %, Range (11.5-14.5), *Platelet Count 63 - L thou/uL, Range (130-400), Mean Platelet Volume 9.2 fL, Range (7.4-10.4), *Neutrophil 34 - L %, Range (42-75), *Band 3 - L %, Range (5-11), *Lymphocytes 60 - H %, Range (21-51), Monocytes 2 %, Range (0-10), Anisocytosis SLIGHT = 6-15 cells (100X), Range (0-5/hpf), *PLT Morphology Comment Appears Decreased - , * L . (08:56 RWAG) Urine Microscopic Collection DT: TueSep 10, 2016 08:28, *RBC/HPF 7-10 - H HPF, Range (0-3), WBC/HPF 0-3 HPF, Range (0-3), Squamous Epithelial 0-3 HPF, Range (0-3), Bacteria/HPF Rare-Few HPF, Range (None Seen). (08:56 RWAG) Urinalysis w/ Rflx Microscopic Collection DT: TueSep 10, 2016 08:28, Color Yellow , Range (Yellow), Clarity Clear , Range (Clear), Specific [place], Urine 1.015 , Range (1.005-1.030), pH, Urine 5.5 , Range (5.0-9.0), Leukocyte Negative , Range (Negative), Nitrite Negative , Range (Negative), Protein, Urine (Dipstick) Trace mg/dL, Range (Neg-Trace), Glucose, Urine (Dipstick) Negative mg/dL, Range (Negative), Ketone, Urine Negative mg/dL, Range (Negative), Urobilinogen 0.2 mg/dL, Range (0.2-1.0), Bilirubin Negative , Range (Negative), *Blood, Urine Moderate - H , Range (Negative). (08:56 [facility]) Cardiac Profile w/CKMB & TropI Collection DT: TueSep 10, 2016 08:09, CKMB 1.1 ng/mL, Range (0-6.6), Troponin I Less than 0.010 ng/mL, Range (< 0.028), Reference Range , 0.00 - 0.028 ng/mL Negative 0.029 - 0.29 ng/mL , Indeterminate Greater or Equal to 0.3 ng/mL Strongly suggests [place] , . (08:56 [facility]) Basic Metabolic Panel Collection DT: TueSep 10, 2016 08:09, Sodium 142 mmol/L, Range (136-145), *Potassium 3.4 - L mmol/L, Range (3.5-5.1), Chloride 106 mmol/L, Range (98-107), &a-1R&a+25V*p+0X*e2710W*c202B*c15G*c2P*p-0X&a-25V&a+1R Name: Chris Robles : 1930 M85 MedRec: [id number] AcctNum: [id number] Prepared: TueSep 10, 2016 10:07 by Interface Page 16 of 17 pMD [facility] EMERGENCY RECORD Carbon Dioxide 23 mmol/L, Range (23-31), Anion Gap 16 mmol/L, Range (10-20), BUN (Urea Nitrogen) 15 mg/dL, Range (8.4-25.7), Creatinine 1.09 mg/dL, Range (0.7-1.3), Estimated GFR-MDRD 78 , Reference Range for Estimated GFR: Greater than 90, mL/min/1.73 m2 NOTE: The MDRD equation has not been validated for use, with the elderly (over 70 years of age), women, patients with, serious comorbid condition or persons with extremes of body size, muscle, mass, or nutritional status. , *Glucose 183 - H mg/dL, Range (83-110), Calcium 8.6 mg/dL, Range (7.8-10.44). (08:56 [facility]) PTT Collection DT: TueSep 10, 2016 09:32, See comment below , Anticoagulant? NONE Medical Necessity SUSPECT COAGULOPATHY , PTT 33.7 SEC, Range (22.9-36.1). (09:49 [facility]) Protime with INR Collection DT: TueSep 10, 2016 09:32, See comment below , Anticoagulant? NONE Medical Necessity SUSPECT COAGULOPATHY , *Prothrombin Time 24.6 - H SEC, Range (12.0-14.7), INR-International Normal Ratio 2.2 , ATTENTION: READ CAREFULLY , The, recommended therapeutic ranges for oral anticoagulant treatments are: , , Low Intensity: 1.5 - 2.0 Moderate Intensity: 2.0, - 3.0 High Intensity (1): 2.5 - 3.5 High, Intensity (2): 3.0 - 4.0 CRITICAL: >, 4.0 . (09:49 SFRE) Edward: AWAT=NASRIN Ye, Louis JPAR=ELLYN Willoughby Julia MCRS=NASRIN Coats, Andrew RWAG=MD Elinor, Zheng SFRE=NASRIN Diaz, Sindi &a-1R&a+25V*p+0X*y4163D*c202B*c15G*c2P*p-0X&a-25V&a+1R Name: Chris Robles : 1930 M85 MedRec: [id number] AcctNum: [id number] Prepared: TueSep 10, 2016 10:07 by Interface Page 17 of 17 pMD [facility] MEDICATION RECONCILIATION You were seen in the Emergency Department on: TueSep 10, 2016 KNOWN ALLERGIES No Known Drug Allergies MEDICATIONS GIVEN WHILE IN THE EMERGENCY DEPARTMENT ondansetron HCl intravenous (ondansetron HCl) - Dose: 8 milligram(s) : IV Push famotidine (PF) (famotidine/preservative free) - Dose: 20 milligram(s) : IV Push cefTRIAXone injection (ceftriaxone sodium) - Dose: 1 gram(s) : IV Piggy Back fentaNYL (PF) injection (fentanyl citrate/preservative free) - Dose: 50 microgram(s) : IV Push Amidate (etomidate) - Dose: 20 milligram(s) : IV Push succinylcholine chloride intravenous (succinylcholine chloride) - Dose: 200 milligram(s) : IV Push Versed injection (midazolam HCl) - Dose: 10 milligram(s) : IV Piggy Back HOME MEDICATIONS finasteride : TABLET : Strength - 5 mg : ORAL Patient had been takin null null once a day. hydrochlorothiazide : TABLET : Strength - 25 mg : ORAL Patient had been taking: once a day. meTOPROLOL tartrate : TABLET : Strength - 25 mg : ORAL Patient had been takin mg Oral 2 times a day. NIFEdipine : TABLET, EXTENDED RELEASE : Strength - 60 mg : ORAL Patient had been takin mg Oral once a day. terazosin : TABLET : Strength - 2 mg : ORAL Patient had been takin cap(s) Oral once a day (in the evening). warfarin : TABLET : Strength - 7.5 mg : ORAL Patient had been takin mg Oral once a day. Notes from the emergency department Reviewed with family &a-1R&a+25V*p+0X*r8594Z*c202B*c15G*c2P*p-0X&a-25V&a+1R Name: Chris Robles : 1930 M85 MedRec: [id number] AcctNum: [id number] Prepared: TueSep 10, 2016 10:07 by Interface pMD DENISE
== END 2016-09-10 09:24 | disposition short-term general hospital (02) ==
LOC: MADERS 07:51
DX: I62.9 Nontraumatic intracranial hemorrhage, unspecified (principal); I10 Essential (primary) hypertension; Z79.01 Long term (current) use of anticoagulants; Z79.899 Other long term (current) drug therapy; Z87.891 Personal history of nicotine dependence
CPT/HCPCS: 31500; 51702; 70450; 71010; 80048; 80306; 81003; 81015; 82140; 82553; 83605; 84484; 85025; 85610; 85730; 87040; 87086; 93005; 94760; 96365; 96375; 99292; J0330; J0696; J2250; J2405; J3010; J7050; J7620